=== PATIENT | male | born 1960 | race Caucasian/White ===

== ENCOUNTER → 2020-05-29 | Outpatient (CLI) | payer BC, SELFPAY ==
--- NOTE | 2020-05-29 18:16 | STRESSREP ---
Stress Test Report 60-year-old man with a history of chest pain. Stress protocol: Resting EKG demonstrates normal sinus rhythm with a rate of 74 bpm normal intervals are noted resting blood pressure is 118/64 mmHg. The patient exercised according to the regular [facility] protocol for a total duration of 9 minutes and 30 seconds. The maximum heart rate attained was 141 bpm which was 87% of max impacted heart rate the maximum workload was 10.9 metabolic equivalents. At rest there were no ST or T wave changes noted to suggest ischemia at peak exercise T wave inversions were noted in lead III and aVF. No ST changes per se were noted. No clinical angina was noted. The test was terminated due to shortness of breath and attainment of target heart rate. The peak blood pressure was 148/70 mmHg with a rate-pressure product of 20,100. Conclusion: Exercise stress test with no definitive EKG criteria for ischemia. Excellent functional capacity.
== END | disposition home or self-care (01) ==
PROVIDERS: PCP Family Medicine; Referring Provider Family Medicine; Visit Provider Family Medicine
DX: R07.9 Chest pain, unspecified (principal); R94.31 Abnormal electrocardiogram [ECG] [EKG]
CPT/HCPCS: 93017